=== PATIENT | male | born 1995 | race Caucasian/White ===

== ENCOUNTER 2016-12-21 11:19 | Emergency (ER) | payer BC ==
[~2016-12-21] VITALS: Ht 188 cm; Wt 95.3 kg
[2016-12-21 11:21] VITALS: TEMP 36.8; Ht 188 cm; Wt 95.3 kg
[2016-12-21] MEDS ORDERED: MESA800T5 PO (11:35)
[2016-12-21] MEDS ORDERED: MRC50 PO (11:35)
[2016-12-21] MEDS ORDERED: MINO75CA2 PO (11:35)
[2016-12-21 12:09] LABS: BASO % 0.6 %; BASO ABS # 0.02 K/uL (0-0.2); COMPLETE YES; EOS % 2.6 %; HEMATOCRIT 43.2 % (42-52); IG% 0.3 %; LYMPH % 28.2 %; LYMPH ABS # 0.99 K/uL (1.2-3.4); MEAN CELL VOLUME 93.3 fL (80-100); MEAN CORPUSCULAR HEMOGLOBIN 33.5 pg (25-34); MEAN CORPUSCULAR HGB CONC 35.9 g/dl (32-36); MONO % 11.7 %; NEUT % 56.6 %; PLATELET COUNT 171 K/uL (130-400); RED BLOOD COUNT 4.63 M/uL (4.7-6.1); WHITE BLOOD COUNT 3.51 K/uL (4.8-10.8)
[2016-12-21 12:30] LABS: BUN/CREATININE RATIO 17.5 (10-20); CREATININE 0.86 mg/dl (0.60-1.40); POTASSIUM 3.7 mmol/L (3.5-5.1)
[2016-12-21 12:33] LABS: ALB/GLOB RATIO 1.1 (0.9-2)
[2016-12-21 12:55] LABS: URINE APPEARANCE CLEAR (CLEAR); URINE BILIRUBIN NEG (NEG); URINE COLOR DK YELLOW; URINE NITRITE NEG (NEG); URINE SPECIFIC GRAVITY 1.031 (1.000-1.030); UROBILINOGEN NEG (NEG); ZZUR CULT IF INDIC CLEAN CATCH NO
--- NOTE | 2016-12-21 13:06 | DIAGNOSTIC IMAGING REPORT ---
PA CHEST WITH ABDOMINAL SERIES CLINICAL HISTORY: Epigastric abdominal pain. Reported history of Crohn's disease. FINDINGS: A PA chest radiograph is obtained. No prior studies are available for comparison at the time of dictation. The cardiomediastinal silhouette is unremarkable. The lungs and pleural spaces are clear. No pneumothorax is seen. The bony thorax is grossly intact. Supine and erect abdominal radiographs are obtained. No prior studies are available for comparison at the time of dictation. There is a nonobstructed abdominal bowel gas pattern. Mild to moderate colonic fecal retention is observed. No evidence of intraperitoneal free air is seen. There are no abnormal abdominal calcifications. The lumbosacral spine and bony pelvis appear intact. Mild sclerotic change is suggested in the sacroiliac joints. IMPRESSION: 1. No active disease in the chest. 2. Nonobstructed abdominal bowel gas pattern. Electronically signed by: Kenney Caal M.D. 12/21/2016 1:05 PM Dictated Date/Time: 12/21/2016 1:04 PM
[2016-12-21 13:07] LABS: MANUAL MICROSCOPIC REQUIRED? NO; REVIEW REQ? NO
--- NOTE | 2016-12-21 13:19 | EMERGENCY ROOM VISIT NOTE ---
History First contact with patient: 12:01 Chief Complaint: ABDOMINAL PAIN Stated Complaint: SHARP STOMACH PAINS Nursing Triage Summary: bilateral abdominal pain starting today, worse with bending over. Pt feels "unlike any chrons pain" he ever experienced. History of Present Illness The patient is a 21 year old male who presents to the Emergency Room with complaints of sharp intermittent abdominal pain in the epigastric region that started after he woke up this morning. He denies any nausea or vomiting. No changes in bowel movements. His last bowel movement was last night and reportedly normal. He denies any blood in his stool. He is not taking anything for the pain. He has not yet eaten this morning. The patient has a history of Crohn's disease. He says that this does not feel like his typical Crohn's flare. Review of Systems 10 system review performed and negative unless noted in HPI or below Past Medical/Surgical History Crohn's disease Social History Smoking Status: Never Smoker Drug Use: none Occupation Status: [employer] student Current/Historical Medications Scheduled Mercaptopurine (Mercaptopurine), 75 MG PO DAILY Mesalamine (Asacol Hd), 1,600 MG PO TID Minocycline (Minocin), 75 MG PO BID Physical Exam Vital Signs Date Time Temp Pulse Resp B/P (MAP) Pulse Ox O2 Delivery O2 Flow Rate FiO2 12/21/16 17:47 60 18 122/77 99 Room Air 12/21/16 16:08 66 18 131/67 100 Room Air 12/21/16 13:27 69 18 124/71 97 Room Air 12/21/16 11:21 36.8 96 16 132/79 99 Room Air Physical Exam VITALS: Vitals are noted on the nurse's note and reviewed by myself. Vital signs stable. GENERAL: 21-year-old male, in no acute distress, nondiaphoretic, well-developed well-nourished. SKIN: The skin was without rashes, erythema, edema, or bruising. HEAD: Normocephalic atraumatic. MOUTH: Mucous membranes dry NECK: Supple without nuchal rigidity. No lymphadenopathy. Cervical spine is nontender. No JVD. HEART: Regular rate and rhythm without murmurs gallops or rubs. LUNGS: Clear to auscultation bilaterally without wheezes, rales or rhonchi. No accessory muscle use. ABDOMEN: Positive bowel sounds x 4.Soft, tenderness to palpation in the epigastric region. Without organomegaly. No guarding or rebound tenderness. MUSCULOSKELETAL: No muscle atrophy, erythema, or edema noted. . Strength 5/5 throughout. NEURO: Patient was alert and oriented to person place and time. Normal sensation to touch. No focal neurological deficits. Medical Decision & Procedures ER Provider Diagnostic Interpretation: CT abd/pelvis IMPRESSION: 1. No acute intra-abdominal or pelvic findings 2. No evidence of bowel obstruction. No evidence of free air 3. Normal appendix. No evidence of acute diverticulitis 4. No terminal ileum abnormalities identified Electronically signed by: Eloy Dior M.D. 12/21/2016 4:45 PM Dictated Date/Time: 12/21/2016 4:43 PM GB US IMPRESSION: Unremarkable sonographic assessment of the right upper quadrant. No gallstones are identified. Electronically signed by: Kenney Caal M.D. 12/21/2016 3:28 PM Dictated Date/Time: 12/21/2016 3:27 PM Abdominal films IMPRESSION: 1. No active disease in the chest. 2. Nonobstructed abdominal bowel gas pattern. Electronically signed by: Kenney Caal M.D. 12/21/2016 1:05 PM Dictated Date/Time: 12/21/2016 1:04 PM Laboratory Results 12/21/16 11:40 Red Blood Count 4.63, Mean Corpuscular Volume 93.3, Mean Corpuscular Hemoglobin 33.5, Mean Corpuscular Hemoglobin Concent 35.9, Mean Platelet Volume 12.0, Neutrophils (%) (Auto) 56.6, Lymphocytes (%) (Auto) 28.2, Monocytes (%) (Auto) 11.7, Eosinophils (%) (Auto) 2.6, Basophils (%) (Auto) 0.6, Neutrophils # (Auto ) 1.99, Lymphocytes # (Auto) 0.99, Monocytes # (Auto) 0.41, Eosinophils # (Auto ) 0.09, Basophils # (Auto) 0.02 12/21/16 11:40 Test 12/21/16 11:40 12/21/16 12:15 White Blood Count 3.51 K/uL (4.8-10.8) Red Blood Count 4.63 M/uL (4.7-6.1) Hemoglobin 15.5 g/dL (14.0-18.0) Hematocrit 43.2 % (42-52) Mean Corpuscular Volume 93.3 fL (80-100) Mean Corpuscular Hemoglobin 33.5 pg (25-34) Mean Corpuscular Hemoglobin Concent 35.9 g/dl (32-36) Platelet Count 171 K/uL (130-400) Mean Platelet Volume 12.0 fL (7.4-10.4) Neutrophils (%) (Auto) 56.6 % Lymphocytes (%) (Auto) 28.2 % Monocytes (%) (Auto) 11.7 % Eosinophils (%) (Auto) 2.6 % Basophils (%) (Auto) 0.6 % Neutrophils # (Auto) 1.99 K/uL (1.4-6.5) Lymphocytes # (Auto) 0.99 K/uL (1.2-3.4) Monocytes # (Auto) 0.41 K/uL (0.11-0.59) Eosinophils # (Auto) 0.09 K/uL (0-0.5) Basophils # (Auto) 0.02 K/uL (0-0.2) RDW Standard Deviation 45.7 fL (36.4-46.3) RDW Coefficient of Variation 13.4 % (11.5-14.5) Immature Granulocyte % (Auto) 0.3 % Immature Granulocyte # (Auto) 0.01 K/uL (0.00-0.02) Anion Gap 6.0 mmol/L (3-11) Est Creatinine Clear Calc Drug Dose 159.4 ml/min Estimated GFR () 144.7 Estimated GFR (Non- 124.8 BUN/Creatinine Ratio 17.5 (10-20) Calcium Level 9.0 mg/dl (8.5-10.1) Total Bilirubin 2.8 mg/dl (0.2-1) Aspartate Amino Transf (AST/SGOT) 19 U/L (15-37) Alanine Aminotransferase (ALT/SGPT) 20 U/L (12-78) Alkaline Phosphatase 75 U/L (45-117) Total Protein 8.2 gm/dl (6.4-8.2) Albumin 4.3 gm/dl (3.4-5.0) Globulin 3.9 gm/dl (2.5-4.0) Albumin/Globulin Ratio 1.1 (0.9-2) Lipase 107 U/L (73-393) Urine Color DK YELLOW Urine Appearance CLEAR (CLEAR) Urine pH 7.0 (4.5-7.5) Urine Specific [place] 1.031 (1.000-1.030) Urine Protein NEG (NEG) Urine Glucose (UA) NEG (NEG) Urine Ketones NEG (NEG) Urine Occult Blood NEG (NEG) Urine Nitrite NEG (NEG) Urine Bilirubin NEG (NEG) Urine Urobilinogen NEG (NEG) Urine Leukocyte Esterase NEG (NEG) Medications Administered Medications (Trade) Dose Ordered Sig/Madonna Route Start Time Stop Time Status Last Admin Dose Admin Oxycodone/ Acetaminophen (Percocet 5-325mg Tab) 1 tab NOW STAT PO 12/21/16 17:31 12/21/16 17:32 DC 12/21/16 17:46 1 TAB ED Course Patient was seen and examined Vital signs including blood pressure were reviewed medications list was verified with patient Labs were obtained, and a saline lock was established Imaging was performed and reviewed The patient was reassessed. We discussed his workup. He voiced understanding. He did request pain control medication. He was given 1 Percocet. I reviewed discharge instructions the patient. They voiced understanding and had no further questions. Medical Decision DIFFERENTIAL DIAGNOSIS: Gastroenteritis, Hepatitis, cholecystitis, cholangitis, biliary colic, pancreatitis, appendicitis, inguinal hernia, nephrolithiasis, inflammatory bowel disease, mesenteric adenitis, peptic ulcer disease, GERD, gastritis, pancreatitis,, bowel obstruction, splenic infarct, diverticulitis, mesenteric ischemia, metabolic, peritonitis, among others. This patient is a 21-year-old male that presents the emergency department with intermittent, sharp abdominal pain in the epigastrium. The pain is worse with movement. Given the patient's history of Crohn's disease, I wanted to rule out an obstruction. An obstructive series was performed. No acute abnormalities were noted. Upon review of the labs, the patient's total bili was elevated at 2.8. Other LFTs were within normal limits. The etiology of this was unclear. I ordered a CT the abdomen and pelvis and an ultrasound of the gallbladder. No acute abnormalities were noted. The etiology of his pain is unclear. The patient was given a short course of pain medication. He was instructed to call [facility] in the morning for a follow-up plan. He will need to have his LFTs rechecked. If the pain persists, he will need follow-up with the GI specialist. He was urged to return to the emergency department immediately if his symptoms worsen. He is in agreement with this plan. This chart was completed in part utilizing [employer] Speech Voice Recognition software. Attempts were made to minimize the grammatical errors, random word insertions, pronoun errors and incomplete sentences. Any formal questions or concerns about the content, text or information contained within the body of this dictation should be directly addressed to the provider for clarification. Blood Pressure Screening Patient's blood pressure: Normal blood pressure Impression Primary Impression: Abdominal pain Departure Information Dispostion Home / Self-Care Condition GOOD Referrals [facility] (PCP) Patient Instructions My [facility] Additional Instructions You were evaluated in the emergency department for abdominal pain. The cause of this is unclear. A CAT scan did not show any significant abnormalities. Your total bilirubin (a function of the liver) was slightly abnormal. This should be rechecked within the next 3-5 days Please call [facility] tomorrow morning for a follow-up appointment. If this pain persists, you should see a mobile equipment servicer. Return to the emergency department if you have any of the following symptoms: -Fever of 102F or greater -Persistent vomiting - Persistent diarrhea -Lethargy -Chest pain -Shortness of breath -Worsening abdominal pain
[2016-12-21] MEDS ORDERED: OPTIRAY 320 IV PRN (13:45)
--- NOTE | 2016-12-21 15:30 | DIAGNOSTIC IMAGING REPORT ---
ULTRASOUND RIGHT UPPER QUADRANT ABDOMEN CLINICAL HISTORY: Epigastric abdominal pain. Elevated bilirubin level. COMPARISON STUDY: Abdominal radiograph dated 12/21/2016. TECHNIQUE: Real-time, grayscale, and color flow sonography of the right upper quadrant of the abdomen was performed. Images are reviewed in the transverse and longitudinal planes. FINDINGS: Liver: The liver is normal in size and echotexture. There is no intrahepatic biliary ductal dilatation. The main portal vein is patent. Gallbladder: The gallbladder is normal in appearance. No gallstones are identified. There is no gallbladder wall thickening or pericholecystic fluid. A sonographic Atkins's sign is reportedly absent. The common bile duct measures up to 0.3 cm in diameter. Pancreas: Visualized portions of the pancreatic head and body are normal in appearance. The splenic vein is patent. Right kidney: Survey images of the right kidney demonstrate normal size and echotexture. There is no hydronephrosis. Ascites: None. IMPRESSION: Unremarkable sonographic assessment of the right upper quadrant. No gallstones are identified. Electronically signed by: Kenney Caal M.D. 12/21/2016 3:28 PM Dictated Date/Time: 12/21/2016 3:27 PM
--- NOTE | 2016-12-21 16:47 | DIAGNOSTIC IMAGING REPORT ---
CT ABD/PELVIS IV AND ORAL CONT CLINICAL HISTORY: Epigastric pain. History of Crohn's disease. COMPARISON STUDY: None. TECHNIQUE: Following the IV administration of 116 mL of [id number]-320, CT scan of the abdomen and pelvis was performed from the lung bases to the proximal femurs. Images are reviewed in the axial, sagittal, and coronal planes. IV contrast was administered without complication. A dose lowering technique was utilized adhering to the principles of ALARA. CT DOSE: 473.61 mGy.cm FINDINGS: Lower chest: There are minimal dependent atelectatic changes. Liver: The contrast-enhanced liver is normal in size, contour, and attenuation. There is no intrahepatic biliary ductal dilatation. The hepatic veins and portal veins are patent. Gallbladder: Unremarkable. Spleen: Normal in size and attenuation. Pancreas: Unremarkable. Adrenal glands: Unremarkable. Kidneys: There is symmetric renal cortical enhancement. The kidneys are normal in size without hydronephrosis. Bowel: There are no transition zones indicate bowel obstruction. There is no acute diverticulitis. The appendix appears normal. No abnormalities the terminal ileum are visualized. Peritoneum: There is no intraperitoneal free air or abdominal ascites. Vasculature: The abdominal aorta is normal in course and caliber. Adenopathy: None. Pelvic viscera: The bladder, and pelvic viscera are unremarkable. Skeletal structures: No destructive osseous lesions are seen. IMPRESSION: 1. No acute intra-abdominal or pelvic findings 2. No evidence of bowel obstruction. No evidence of free air 3. Normal appendix. No evidence of acute diverticulitis 4. No terminal ileum abnormalities identified Electronically signed by: Eloy Dior M.D. 12/21/2016 4:45 PM Dictated Date/Time: 12/21/2016 4:43 PM
[2016-12-21] MEDS ORDERED: OXYCODONE/ACETAMINOPHEN 5-325 TAB PO STA (17:31)
[2016-12-21 17:47] VITALS: BP 122/77; PULSE 60; O2SAT 99
== END 2016-12-21 18:01 | disposition home or self-care (01) ==
LOC: C.EDB 11:21 → C.EDC 18:01
DX: R10.9 Unspecified abdominal pain (principal); K50.90 Crohn's disease, unspecified, without complications